=== PATIENT | female | born 1960 | race Caucasian/White ===

== ENCOUNTER → 2020-03-31 | Day surgery (SDC) | payer OTHER ==
[~2020-03-31] MED LIST: 3IN1 COMMODE; CALCIUM WITH V1 EAC1 PO; CHROMIUM PIC1000 MCG PO; CINNAMON500 MG PO; CLOBETASOL EMOL15 GM TOP; CO Q10100 MG PO; COLACE100 MG PO; COZAAR100 MG PO; CYMBALTA 30MG C30 MG PO; ELDERBERRY-VIT1 EACH PO; ETODOLAC500 MG PO; FIBER SELECT G1 EACH PO; FLEXERIL10 MG PO; HCTZ25 MG PO; LEVAQUIN750 MG PO; LOSARTAN-HCTZ1 EAC1 PO; LOVAZA1 GM PO; MAG-OXIDE 400M400 MG PO; MELOXICAM7.5 MG PO; METFORMIN HCL500 MG PO; METRONIDAZOLE500 MG PO; MUCINEX 600MG600 MG PO; NORCO 5-325 TA1 EACH PO; PERCOCET 5-3251 EACH PO; POLY-IRON150 MG PO; PROBIOTIC1 EAC1 PO; SALMON OIL 1,01 EACH PO; STIOLTO INHALER MT; SYNTHROID100 MCG PO; SYNTHROID88 MCG PO; TUMS200 MG PO; TURMERIC500 M1 PO; ULTRAM50 MG PO; VENTOLIN HFA IN18 GM INH; VITAMIN B COMP1 EACH PO; VITAMIN D325 MC4 PO; VOLTAREN100 GM TOP; WOMEN'S 50 PLU1 EACH PO; ZOCOR10 MG PO; ZOFRAN ODT4 MG PO; ZYRTEC10 M3 PO
[2020-03-31 08:30] LABS: BUN/CREAT RATIO (CALC) 16.7 RATIO; CREATININE 0.6 mg/dL (0.51-0.95); POTASSIUM 3.3 mmol/L (3.5-5.1)
== END | disposition home or self-care (01) ==
LOC: FAS 07:04
PROVIDERS: Anesthesiology
DX: D05.02 Lobular carcinoma in situ of left breast (principal); N60.92 Unspecified benign mammary dysplasia of left breast; N60.22 Fibroadenosis of left breast; E11.9 Type 2 diabetes mellitus without complications; I10 Essential (primary) hypertension; J44.9 Chronic obstructive pulmonary disease, unspecified; F17.210 Nicotine dependence, cigarettes, uncomplicated; J30.9 Allergic rhinitis, unspecified; M19.90 Unspecified osteoarthritis, unspecified site; K21.9 Gastro-esophageal reflux disease without esophagitis; E78.00 Pure hypercholesterolemia, unspecified; G47.30 Sleep apnea, unspecified; E03.9 Hypothyroidism, unspecified; Z79.84 Long term (current) use of oral hypoglycemic drugs; Z79.890 Hormone replacement therapy; Z80.3 Family history of malignant neoplasm of breast; Z88.0 Allergy status to penicillin; Z88.1 Allergy status to other antibiotic agents; Z88.6 Allergy status to analgesic agent
CPT/HCPCS: 36415; 76098; 77065; 80048; J2250; J2704; J3010; J7120; Q9968

== ENCOUNTER 2020-09-03 19:17 | Emergency (ER) | payer OTHER ==
[2020-09-03 22:24] LABS: BILIRUBIN NEGATIVE (NEGATIVE); BLOOD 2+ Ery/uL (NEGATIVE); CLARITY CLEAR (CLEAR); COLOR YELLOW (YELLOW); GLUCOSE (U) NORMAL (NORMAL); LEUKOCYTES 2+ Leu/uL (NEGATIVE); NITRITE NEGATIVE (NEGATIVE); PROTEIN NEGATIVE (NEGATIVE); SPECIFIC GRAVITY <=1.005 (1.001-1.030); UROBILINOGEN 0.2 mg/dL (0.2-1.0)
[2020-09-03 22:31] LABS: BACTERIA TRACE
[2020-09-03 22:59] LABS: BASOPHIL 0.5 % (0-2); HCT 37.4 % (37.0-47.0); HGB 12.6 g/dl (12.5-16.0); LYMPHOCYTE 29.7 % (15-48); MCH 28.7 pg (25.0-31.0); MCHC 33.7 g/dL (32.0-36.0); MCV 85.2 fL (78.0-100.0); MPV 10.2 fL (6.0-9.5); NRBC 0; PLT 319 K/uL (150-400); RBC 4.39 M/uL (4.20-5.40); WBC 16.9 K/uL (4.0-10.5)
[2020-09-03 23:10] LABS: NEUTROPHIL 62.4 % (41-80)
[2020-09-03 23:11] LABS: BILIRUBIN - TOTAL 0.6 mg/dL (0.2-1.0); BUN/CREAT RATIO (CALC) 10.1 RATIO; CREATININE 0.69 mg/dL (0.51-0.95); GLOBULIN (CALCULATION) 4.7 g/dL; POTASSIUM 3.5 mmol/L (3.5-5.1); TOTAL PROTEIN 7.7 g/dL (6.4-8.2)
[2020-09-04] MEDS ORDERED: CIPRO500 MG PO (03:47)
[2020-09-04] MEDS ORDERED: METRONIDAZOLE500 MG PO (03:48)
== END 2020-09-04 03:54 | disposition home or self-care (01) ==
LOC: FER 19:17
PROVIDERS: Nurse Practitioner Family
DX: R10.30 Lower abdominal pain, unspecified (principal); I10 Essential (primary) hypertension; E03.9 Hypothyroidism, unspecified; F17.210 Nicotine dependence, cigarettes, uncomplicated; Z79.899 Other long term (current) drug therapy
CPT/HCPCS: 36415; 80053; 81001; 82150; 83690; 85025; J2270; J2405; J7030; Q9967

== ENCOUNTER 2021-01-16 06:34 | Day surgery (SDC) | payer OTHER ==
[~2021-01-16] VITALS: Ht 168 cm; Wt 102.0 kg
[~2021-01-16 06:34] MED LIST changes: +ALLEGRA ALLERG180 MG PO; +CIPRO500 MG PO; +NORVASC 5MG TABL5 MG PO
[2021-01-16] MEDS ORDERED: NAPROXEN500 MG PO (06:57)
[2021-01-17 06:02] LABS: BASOPHIL 0.3 % (0-2); EOSINOPHIL 0.4 % (0-5); HCT 30.7 % (37.0-47.0); HGB 9.9 g/dl (12.5-16.0); MCH 28.8 pg (25.0-31.0); MCHC 32.2 g/dL (32.0-36.0); MCV 89.2 fL (78.0-100.0); MONOCYTE 7.7 % (0-12); MPV 10.4 fL (6.0-9.5); NEUTROPHIL 67.5 % (41-80); NRBC 0; PLT 272 K/uL (150-400); RBC 3.44 M/uL (4.20-5.40); WBC 14.2 K/uL (4.0-10.5)
[2021-01-17 06:49] LABS: BUN/CREAT RATIO (CALC) 12.2 RATIO; CREATININE 0.74 mg/dL (0.51-0.95); POTASSIUM 3.6 mmol/L (3.5-5.1)
[2021-01-17] MEDS ORDERED: XARELTO10 MG PO (09:24)
[2021-01-17] MEDS ORDERED: OXYCODONE-ACET1 EAC1 PO (09:24)
[2021-01-17] MEDS ORDERED: FEOSOL325 MG PO (09:24)
== END 2021-01-17 12:45 | disposition home or self-care (01) ==
LOC: FAS 06:34 → FMS 06:34 → FAS 08:30 → FOR 08:30 → FMS 10:15 → FAS 01-17 12:45
PROVIDERS: Legal Medicine
DX: M16.11 Unilateral primary osteoarthritis, right hip (principal); J44.9 Chronic obstructive pulmonary disease, unspecified; I10 Essential (primary) hypertension; E78.5 Hyperlipidemia, unspecified; E11.9 Type 2 diabetes mellitus without complications; Z88.1 Allergy status to other antibiotic agents; Z88.0 Allergy status to penicillin
CPT/HCPCS: 36415; 73501; 76000; 80048; 82962; 85025; 86850; 86900; 86901; 94010; 94762; 97110; 97162; 97166; 97530-GP; 97535; C1776; J0171; J1170; J1885; J2270; J2405; J2704; J2795; J3010; J7120